=== PATIENT | female | born 1995 | race Caucasian/White ===

== ENCOUNTER → 2022-04-15 | Day surgery (SDC) | payer MEDICAID ==
[~2022-04-15] VITALS: Ht 154.9 cm; Wt 76.7 kg
[~2022-04-15] MED LIST: ASPI1TAB8 PO; BUPIVACAINE HCL 0.5% (5MG/ML) 50ML ONE; FAMO40TA7 PO; FENTANYL CITRATE/PF 50MCG/ML 2ML VIAL IV NR; FENTANYL CITRATE/PF 50MCG/ML 2ML VIAL ONE; GLYCOPYRROLATE 0.2 MG/ML 2ML VIAL ONE; HYDROMORPHONE HCL/PF 2MG/ML CPJ IV NR; KETOROLAC 30MG/ML VIAL IV NR; LACTATED RINGERS 1,000 ML IV SCH; METOCLOPRAMIDE HCL 10MG/2ML VIAL IV PRN; NEOSTIGMINE METHYLSULFATE 1MG/ML 10 ML VIAL ONE; OMEP40CA20 PO; ONDANSETRON HCL 4MG/2ML INJ IV SCH; ONDANSETRON HCL 4MG/2ML INJ ONE; OXYC-662 PO; PROCHLORPERAZINE 10MG/2ML VIAL IV PRN; PROPOFOL 200MG/20ML VIAL IV ONE; ROCURONIUM BROMIDE 10MG/ML VIAL 5ML IV ONE; SCOPOLAMINE HYDROBROMIDE PATCH 72HR TD NR; SKIN ADHESIVE 0.7 GM EA TOP ONE; SUCCINYLCHOLINE CHLORIDE 200MG/10ML IV ONE; TOPUD PO
[2022-04-15 07:40] LABS: CHLORIDE 107 mEq/L (98-107)
[2022-04-15 07:41] LABS: UCG SCREEN NEGATIVE
[2022-04-15 07:41] LABS: INR 1.1; PARTIAL THROMBOPLASTIN TIME 30.6 sec (23.4-31.0)
[2022-04-15 11:52] VITALS: BP 145/62
== END | disposition home or self-care (01) ==
LOC: OR 06:52
PROVIDERS: ATTEND Surgery
DX: K80.00 Calculus of gallbladder with acute cholecystitis without obstruction (principal); J45.909 Unspecified asthma, uncomplicated; Z79.82 Long term (current) use of aspirin; Z79.899 Other long term (current) drug therapy; Z98.890 Other specified postprocedural states; Z88.6 Allergy status to analgesic agent; Z88.8 Allergy status to other drugs, medicaments and biological substances; Z79.01 Long term (current) use of anticoagulants; Z20.822 Contact with and (suspected) exposure to COVID-19
CPT/HCPCS: 36415; 47562; 80048; 81025; 85610; 85730; 87426; 88304; C9803; J0330; J1170; J2405; J2704; J2710; J2765; J3010; J3490; J7030; J7040; J7120